=== PATIENT | female | born 1940 | race Caucasian/White ===

== ENCOUNTER 2021-11-29 11:58 | Inpatient (IN) ==
[2021-11-29] MEDS: *HR* OxyCODONE/APAP 5/325 TABLET PO PRN (21:42)
[2021-11-29] MEDS: Pregabalin 50 MG CAPSULE PO SCH (21:42)
[2021-11-30] MEDS: Latanoprost 2.5 ML BOTTLE BOTH EYES SCH ×2 (05:00→20:49)
[2021-11-30 07:26] LABS: Basophils % 0.2 %; Eosinophils # 0.2 K/mcL (0.0-0.6); Eosinophils % 2.5 %; Hematocrit 23.8 % (35.3-44.9); Hemoglobin 7.5 g/dL (11.5-15.4); Immature Granulocytes % 1.3 % (0-4); Lymphocytes # 1.1 K/mcL (0.6-4.6); Lymphocytes % 12.5 %; Mean Corpuscular HGB Conc 31.5 g/dL (31.6-35.5); Mean Corpuscular Hemoglobin 26.9 pg (28.0-33.3); Mean Corpuscular Volume 85.3 fL (83.0-100.0); Mean Platelet Volume 10.4 fL (9.4-12.4); Monocytes # 0.7 K/mcL (0.0-1.3); Monocytes % 7.9 %; Neutrophils # 6.8 K/mcL (1.6-8.9); Platelet Count 351 K/mcL (140-400); Red Blood Count 2.79 M/mcL (3.82-4.97); Red Cell Distribution Width 18.5 % (11.5-14.5); Segmented Neutrophils % 75.6 %
[2021-11-30 08:02] LABS: BUN/Creatinine Ratio 21 (6-26); Blood Urea Nitrogen 16 mg/dL (8-23); Calcium 8.2 mg/dL (8.6-10.3); Carbon Dioxide 30 mEq/L (23-29); Chloride 104 mEq/L (98-107); Glucose 96 mg/dL (70-105); Osmolality,Calculated 293 (280-300); Potassium 2.5 mEq/L (3.5-5.1); Sodium 141 mEq/L (136-145); eGFR For African Americans > 60 (> 60); eGFR For Non-African Americans > 60 (> 60)
[2021-11-30] MEDS: *HR* Heparin 5,000 UNIT/ML VIAL SQ SCH ×2 (08:18→08:21)
[2021-11-30] MEDS: Metoprolol XL (24 HR) Succ 25 MG TAB.ER.24H PO SCH (08:22)
[2021-11-30] MEDS: Vitamin B Complex/Vit C/Vit E 1 EACH TABLET PO SCH (08:22)
[2021-11-30] MEDS: Aspirin Enteric Coated 81 MG Tablet PO SCH (08:22)
[2021-11-30] MEDS: Cholecalciferol (D-3) 1,000 UNIT (25MCG) TABLET PO SCH (08:24)
[2021-11-30] MEDS: Ascorbic Acid 500 MG TABLET PO SCH (08:24)
[2021-11-30] MEDS: lisinopriL 20 MG TABLET PO SCH (08:24)
[2021-11-30] MEDS: Multivit/Ca/Min/Fe/FA 1 TAB TABLET PO SCH (08:24)
[2021-11-30] MEDS: Pregabalin 50 MG CAPSULE PO SCH ×2 (08:24→20:51)
[2021-11-30] MEDS: amLODIPine 5 MG TABLET PO SCH (08:24)
[2021-11-30] MEDS ORDERED: Sennosides/Docusate Sodium TABLET PO PRN (19:03)
[2021-11-30] MEDS: *HR* OxyCODONE/APAP 5/325 TABLET PO PRN (20:49)
[2021-12-01 07:28] LABS: Hematocrit 25.4 % (35.3-44.9); Hemoglobin 7.7 g/dL (11.5-15.4); Mean Corpuscular HGB Conc 30.3 g/dL (31.6-35.5); Mean Corpuscular Hemoglobin 26.5 pg (28.0-33.3); Mean Corpuscular Volume 87.3 fL (83.0-100.0); Mean Platelet Volume 10.8 fL (9.4-12.4); Platelet Count 401 K/mcL (140-400); Red Blood Count 2.91 M/mcL (3.82-4.97); Red Cell Distribution Width 18.9 % (11.5-14.5)
[2021-12-01 08:29] LABS: BUN/Creatinine Ratio 20 (6-26); Blood Urea Nitrogen 18 mg/dL (8-23); Calcium 8.4 mg/dL (8.6-10.3); Carbon Dioxide 30 mEq/L (23-29); Chloride 105 mEq/L (98-107); Glucose 98 mg/dL (70-105); Magnesium 1.8 mg/dL (1.6-2.6); Osmolality,Calculated 296 (280-300); Potassium 3.2 mEq/L (3.5-5.1); Sodium 142 mEq/L (136-145); eGFR For African Americans > 60 (> 60); eGFR For Non-African Americans 60 (> 60)
[2021-12-01] MEDS: Metoprolol XL (24 HR) Succ 25 MG TAB.ER.24H PO SCH (10:53)
[2021-12-01] MEDS: Aspirin Enteric Coated 81 MG Tablet PO SCH (10:54)
[2021-12-01] MEDS: amLODIPine 5 MG TABLET PO SCH (10:54)
[2021-12-01] MEDS: Cholecalciferol (D-3) 1,000 UNIT (25MCG) TABLET PO SCH (10:54)
[2021-12-01] MEDS: lisinopriL 20 MG TABLET PO SCH (10:54)
[2021-12-01] MEDS: Multivit/Ca/Min/Fe/FA 1 TAB TABLET PO SCH (10:55)
[2021-12-01] MEDS: Pregabalin 50 MG CAPSULE PO SCH ×2 (10:55→20:19)
[2021-12-01] MEDS: Ascorbic Acid 500 MG TABLET PO SCH (10:55)
[2021-12-01] MEDS: Vitamin B Complex/Vit C/Vit E 1 EACH TABLET PO SCH (10:55)
[2021-12-01] MEDS: Latanoprost 2.5 ML BOTTLE BOTH EYES SCH (20:20)
[2021-12-02] MEDS: *HR* OxyCODONE/APAP 5/325 TABLET PO PRN ×2 (01:26→23:40)
[2021-12-02 08:39] LABS: Hematocrit 27.3 % (35.3-44.9); Hemoglobin 8.4 g/dL (11.5-15.4); Mean Corpuscular HGB Conc 30.8 g/dL (31.6-35.5); Mean Corpuscular Hemoglobin 26.8 pg (28.0-33.3); Mean Corpuscular Volume 87.2 fL (83.0-100.0); Mean Platelet Volume 9.9 fL (9.4-12.4); Platelet Count 423 K/mcL (140-400); Red Blood Count 3.13 M/mcL (3.82-4.97); Red Cell Distribution Width 19.5 % (11.5-14.5); White Blood Count 10.4 K/mcL (4.3-11.1)
[2021-12-02 09:08] LABS: BUN/Creatinine Ratio 21 (6-26); Blood Urea Nitrogen 17 mg/dL (8-23); Calcium 8.7 mg/dL (8.6-10.3); Carbon Dioxide 30 mEq/L (23-29); Chloride 103 mEq/L (98-107); Glucose 112 mg/dL (70-105); Osmolality,Calculated 292 (280-300); Potassium 3.4 mEq/L (3.5-5.1); Sodium 140 mEq/L (136-145); eGFR For African Americans > 60 (> 60); eGFR For Non-African Americans > 60 (> 60)
[2021-12-02] MEDS: Metoprolol XL (24 HR) Succ 25 MG TAB.ER.24H PO SCH (09:38)
[2021-12-02] MEDS: amLODIPine 5 MG TABLET PO SCH (09:38)
[2021-12-02] MEDS: Pregabalin 50 MG CAPSULE PO SCH ×2 (09:38→20:03)
[2021-12-02] MEDS: Vitamin B Complex/Vit C/Vit E 1 EACH TABLET PO SCH (09:38)
[2021-12-02] MEDS: Cholecalciferol (D-3) 1,000 UNIT (25MCG) TABLET PO SCH (09:38)
[2021-12-02] MEDS: lisinopriL 20 MG TABLET PO SCH (09:38)
[2021-12-02] MEDS: Ascorbic Acid 500 MG TABLET PO SCH (09:38)
[2021-12-02] MEDS: Multivit/Ca/Min/Fe/FA 1 TAB TABLET PO SCH (09:38)
[2021-12-02] MEDS: Aspirin Enteric Coated 81 MG Tablet PO SCH (09:38)
[2021-12-02] MEDS: Latanoprost 2.5 ML BOTTLE BOTH EYES SCH (20:04)
[2021-12-03] MEDS: Metoprolol XL (24 HR) Succ 25 MG TAB.ER.24H PO SCH (08:46)
[2021-12-03] MEDS: Vitamin B Complex/Vit C/Vit E 1 EACH TABLET PO SCH (08:46)
[2021-12-03] MEDS: amLODIPine 5 MG TABLET PO SCH (08:46)
[2021-12-03] MEDS: Multivit/Ca/Min/Fe/FA 1 TAB TABLET PO SCH (08:46)
[2021-12-03] MEDS: Ascorbic Acid 500 MG TABLET PO SCH (08:46)
[2021-12-03] MEDS: lisinopriL 20 MG TABLET PO SCH (08:47)
[2021-12-03] MEDS: Pregabalin 50 MG CAPSULE PO SCH ×2 (08:47→20:28)
[2021-12-03] MEDS: Cholecalciferol (D-3) 1,000 UNIT (25MCG) TABLET PO SCH (08:47)
[2021-12-03] MEDS: Aspirin Enteric Coated 81 MG Tablet PO SCH (08:47)
[2021-12-03] MEDS: *HR* OxyCODONE/APAP 5/325 TABLET PO PRN (20:28)
[2021-12-03] MEDS: Latanoprost 2.5 ML BOTTLE BOTH EYES SCH (20:29)
[2021-12-04 06:15] LABS: Hematocrit 25.6 % (35.3-44.9); Mean Corpuscular HGB Conc 31.3 g/dL (31.6-35.5); Mean Corpuscular Hemoglobin 26.8 pg (28.0-33.3); Mean Corpuscular Volume 85.6 fL (83.0-100.0); Mean Platelet Volume 10.3 fL (9.4-12.4); Platelet Count 382 K/mcL (140-400); Red Blood Count 2.99 M/mcL (3.82-4.97); Red Cell Distribution Width 19.2 % (11.5-14.5); White Blood Count 12.7 K/mcL (4.3-11.1)
[2021-12-04 06:40] LABS: BUN/Creatinine Ratio 14 (6-26); Blood Urea Nitrogen 14 mg/dL (8-23); Calcium 8.7 mg/dL (8.6-10.3); Carbon Dioxide 27 mEq/L (23-29); Chloride 105 mEq/L (98-107); Glucose 89 mg/dL (70-105); Osmolality,Calculated 288 (280-300); Potassium 4.1 mEq/L (3.5-5.1); Sodium 139 mEq/L (136-145); eGFR For African Americans > 60 (> 60); eGFR For Non-African Americans 55 (> 60)
[2021-12-04] MEDS: Ascorbic Acid 500 MG TABLET PO SCH (08:04)
[2021-12-04] MEDS: lisinopriL 20 MG TABLET PO SCH (08:04)
[2021-12-04] MEDS: Metoprolol XL (24 HR) Succ 25 MG TAB.ER.24H PO SCH (08:04)
[2021-12-04] MEDS: Multivit/Ca/Min/Fe/FA 1 TAB TABLET PO SCH (08:04)
[2021-12-04] MEDS: Pregabalin 50 MG CAPSULE PO SCH ×2 (08:04→20:13)
[2021-12-04] MEDS: Aspirin Enteric Coated 81 MG Tablet PO SCH (08:04)
[2021-12-04] MEDS: Cholecalciferol (D-3) 1,000 UNIT (25MCG) TABLET PO SCH (08:05)
[2021-12-04] MEDS: Vitamin B Complex/Vit C/Vit E 1 EACH TABLET PO SCH (08:05)
[2021-12-04] MEDS: amLODIPine 5 MG TABLET PO SCH (08:05)
[2021-12-04] MEDS: *HR* OxyCODONE/APAP 5/325 TABLET PO PRN (13:46)
[2021-12-04] MEDS: Latanoprost 2.5 ML BOTTLE BOTH EYES SCH (20:13)
[2021-12-05] MEDS: *HR* OxyCODONE/APAP 5/325 TABLET PO PRN ×2 (02:04→20:17)
[2021-12-05] MEDS: Cholecalciferol (D-3) 1,000 UNIT (25MCG) TABLET PO SCH (09:22)
[2021-12-05] MEDS: Pregabalin 50 MG CAPSULE PO SCH ×2 (09:23→20:10)
[2021-12-05] MEDS: lisinopriL 20 MG TABLET PO SCH (09:23)
[2021-12-05] MEDS: Aspirin Enteric Coated 81 MG Tablet PO SCH (09:23)
[2021-12-05] MEDS: Metoprolol XL (24 HR) Succ 25 MG TAB.ER.24H PO SCH (09:23)
[2021-12-05] MEDS: amLODIPine 5 MG TABLET PO SCH (09:24)
[2021-12-05] MEDS: Ascorbic Acid 500 MG TABLET PO SCH (09:24)
[2021-12-05] MEDS: Vitamin B Complex/Vit C/Vit E 1 EACH TABLET PO SCH (09:25)
[2021-12-05] MEDS: Multivit/Ca/Min/Fe/FA 1 TAB TABLET PO SCH (09:25)
[2021-12-05] MEDS: Latanoprost 2.5 ML BOTTLE BOTH EYES SCH (20:11)
[2021-12-06 06:14] LABS: Hemoglobin 7.8 g/dL (11.5-15.4); Mean Corpuscular Hemoglobin 26.3 pg (28.0-33.3); Mean Corpuscular Volume 87.5 fL (83.0-100.0); Mean Platelet Volume 10.1 fL (9.4-12.4); Platelet Count 447 K/mcL (140-400); Red Blood Count 2.97 M/mcL (3.82-4.97); Red Cell Distribution Width 19.1 % (11.5-14.5); White Blood Count 7.3 K/mcL (4.3-11.1)
[2021-12-06 06:38] LABS: Potassium 4.2 mEq/L (3.5-5.1)
[2021-12-06] MEDS: Aspirin Enteric Coated 81 MG Tablet PO SCH (08:05)
[2021-12-06] MEDS: Vitamin B Complex/Vit C/Vit E 1 EACH TABLET PO SCH (08:05)
[2021-12-06] MEDS: Pregabalin 50 MG CAPSULE PO SCH ×2 (08:06→19:56)
[2021-12-06] MEDS: lisinopriL 20 MG TABLET PO SCH (08:06)
[2021-12-06] MEDS: Multivit/Ca/Min/Fe/FA 1 TAB TABLET PO SCH (08:06)
[2021-12-06] MEDS: Metoprolol XL (24 HR) Succ 25 MG TAB.ER.24H PO SCH (08:06)
[2021-12-06] MEDS: Ascorbic Acid 500 MG TABLET PO SCH (08:07)
[2021-12-06] MEDS: amLODIPine 5 MG TABLET PO SCH (08:07)
[2021-12-06] MEDS: Cholecalciferol (D-3) 1,000 UNIT (25MCG) TABLET PO SCH (08:07)
[2021-12-06 13:46] LABS: % Iron Saturation 9 % (15-50); Iron 24 mcg/dL (50-170); Transferrin 194 mg/dL (203-362)
[2021-12-06 14:23] LABS: Folate > 22.3 ng/mL (3.0-16.0); Vitamin B12 1391 pg/mL (250-1100)
[2021-12-06] MEDS: *HR* OxyCODONE/APAP 5/325 TABLET PO PRN (19:56)
[2021-12-06] MEDS: Latanoprost 2.5 ML BOTTLE BOTH EYES SCH (19:57)
[2021-12-07] MEDS: Cholecalciferol (D-3) 1,000 UNIT (25MCG) TABLET PO SCH (07:58)
[2021-12-07] MEDS: Multivit/Ca/Min/Fe/FA 1 TAB TABLET PO SCH (07:58)
[2021-12-07] MEDS: lisinopriL 20 MG TABLET PO SCH (07:59)
[2021-12-07] MEDS: amLODIPine 5 MG TABLET PO SCH (08:00)
[2021-12-07] MEDS: Vitamin B Complex/Vit C/Vit E 1 EACH TABLET PO SCH (08:01)
[2021-12-07] MEDS: Pregabalin 50 MG CAPSULE PO SCH ×2 (08:01→21:06)
[2021-12-07] MEDS: Aspirin Enteric Coated 81 MG Tablet PO SCH (08:01)
[2021-12-07] MEDS: Metoprolol XL (24 HR) Succ 25 MG TAB.ER.24H PO SCH (08:02)
[2021-12-07] MEDS: Ascorbic Acid 500 MG TABLET PO SCH (08:02)
[2021-12-07] MEDS: Latanoprost 2.5 ML BOTTLE BOTH EYES SCH (21:06)
[2021-12-07] MEDS: *HR* OxyCODONE/APAP 5/325 TABLET PO PRN (21:09)
[2021-12-08 08:04] LABS: Hematocrit 27.2 % (35.3-44.9); Hemoglobin 8.2 g/dL (11.5-15.4); Mean Corpuscular HGB Conc 30.1 g/dL (31.6-35.5); Mean Corpuscular Hemoglobin 26.5 pg (28.0-33.3); Mean Corpuscular Volume 87.7 fL (83.0-100.0); Mean Platelet Volume 10.2 fL (9.4-12.4); Platelet Count 483 K/mcL (140-400); Red Cell Distribution Width 18.7 % (11.5-14.5); White Blood Count 7.5 K/mcL (4.3-11.1)
[2021-12-08] MEDS: Multivit/Ca/Min/Fe/FA 1 TAB TABLET PO SCH (09:59)
[2021-12-08] MEDS: lisinopriL 20 MG TABLET PO SCH (09:59)
[2021-12-08] MEDS: Aspirin Enteric Coated 81 MG Tablet PO SCH (09:59)
[2021-12-08] MEDS: Cholecalciferol (D-3) 1,000 UNIT (25MCG) TABLET PO SCH (09:59)
[2021-12-08] MEDS: Metoprolol XL (24 HR) Succ 25 MG TAB.ER.24H PO SCH (09:59)
[2021-12-08] MEDS: Vitamin B Complex/Vit C/Vit E 1 EACH TABLET PO SCH (10:00)
[2021-12-08] MEDS: Ascorbic Acid 500 MG TABLET PO SCH (10:00)
[2021-12-08] MEDS: Pregabalin 50 MG CAPSULE PO SCH ×2 (10:00→21:37)
[2021-12-08] MEDS: amLODIPine 5 MG TABLET PO SCH (10:00)
[2021-12-08] MEDS: *HR* OxyCODONE/APAP 5/325 TABLET PO PRN (21:37)
[2021-12-08] MEDS: Latanoprost 2.5 ML BOTTLE BOTH EYES SCH (21:38)
[2021-12-09] MEDS: amLODIPine 5 MG TABLET PO SCH (09:49)
[2021-12-09] MEDS: Multivit/Ca/Min/Fe/FA 1 TAB TABLET PO SCH (09:49)
[2021-12-09] MEDS: *HR* OxyCODONE/APAP 5/325 TABLET PO PRN (09:50)
[2021-12-09] MEDS: Metoprolol XL (24 HR) Succ 25 MG TAB.ER.24H PO SCH (09:50)
[2021-12-09] MEDS: Pregabalin 50 MG CAPSULE PO SCH ×2 (09:50→19:42)
[2021-12-09] MEDS: Ascorbic Acid 500 MG TABLET PO SCH (09:50)
[2021-12-09] MEDS: Vitamin B Complex/Vit C/Vit E 1 EACH TABLET PO SCH (09:50)
[2021-12-09] MEDS: lisinopriL 20 MG TABLET PO SCH (09:50)
[2021-12-09] MEDS: Aspirin Enteric Coated 81 MG Tablet PO SCH (09:50)
[2021-12-09] MEDS: Cholecalciferol (D-3) 1,000 UNIT (25MCG) TABLET PO SCH (10:03)
[2021-12-09] MEDS: Latanoprost 2.5 ML BOTTLE BOTH EYES SCH (19:42)
[2021-12-10] MEDS: *HR* OxyCODONE/APAP 5/325 TABLET PO PRN (08:21)
[2021-12-10] MEDS: Ascorbic Acid 500 MG TABLET PO SCH (08:22)
[2021-12-10] MEDS: Pregabalin 50 MG CAPSULE PO SCH ×2 (08:22→19:49)
[2021-12-10] MEDS: Vitamin B Complex/Vit C/Vit E 1 EACH TABLET PO SCH (08:22)
[2021-12-10] MEDS: Metoprolol XL (24 HR) Succ 25 MG TAB.ER.24H PO SCH (08:22)
[2021-12-10] MEDS: Aspirin Enteric Coated 81 MG Tablet PO SCH (08:22)
[2021-12-10] MEDS: Cholecalciferol (D-3) 1,000 UNIT (25MCG) TABLET PO SCH (08:22)
[2021-12-10] MEDS: amLODIPine 5 MG TABLET PO SCH (08:22)
[2021-12-10] MEDS: lisinopriL 20 MG TABLET PO SCH (08:22)
[2021-12-10] MEDS: Multivit/Ca/Min/Fe/FA 1 TAB TABLET PO SCH (08:22)
[2021-12-10] MEDS ORDERED: Acetaminophen 325 MG TABLET PO PRN (17:34)
[2021-12-10] MEDS: Latanoprost 2.5 ML BOTTLE BOTH EYES SCH (19:49)
[2021-12-11] MEDS: Pregabalin 50 MG CAPSULE PO SCH ×2 (08:17→20:45)
[2021-12-11] MEDS: Multivit/Ca/Min/Fe/FA 1 TAB TABLET PO SCH (08:17)
[2021-12-11] MEDS: Vitamin B Complex/Vit C/Vit E 1 EACH TABLET PO SCH (08:17)
[2021-12-11] MEDS: amLODIPine 5 MG TABLET PO SCH (08:17)
[2021-12-11] MEDS: Aspirin Enteric Coated 81 MG Tablet PO SCH (08:17)
[2021-12-11] MEDS: Metoprolol XL (24 HR) Succ 25 MG TAB.ER.24H PO SCH (08:17)
[2021-12-11] MEDS: Cholecalciferol (D-3) 1,000 UNIT (25MCG) TABLET PO SCH (08:17)
[2021-12-11] MEDS: lisinopriL 20 MG TABLET PO SCH (08:17)
[2021-12-11] MEDS: Ascorbic Acid 500 MG TABLET PO SCH (08:17)
[2021-12-11] MEDS: Latanoprost 2.5 ML BOTTLE BOTH EYES SCH (20:46)
[2021-12-12] MEDS: Cholecalciferol (D-3) 1,000 UNIT (25MCG) TABLET PO SCH (08:25)
[2021-12-12] MEDS: Multivit/Ca/Min/Fe/FA 1 TAB TABLET PO SCH (08:25)
[2021-12-12] MEDS: Vitamin B Complex/Vit C/Vit E 1 EACH TABLET PO SCH (08:25)
[2021-12-12] MEDS: amLODIPine 5 MG TABLET PO SCH (08:25)
[2021-12-12] MEDS: Pregabalin 50 MG CAPSULE PO SCH ×2 (08:25→19:40)
[2021-12-12] MEDS: Aspirin Enteric Coated 81 MG Tablet PO SCH (08:25)
[2021-12-12] MEDS: Metoprolol XL (24 HR) Succ 25 MG TAB.ER.24H PO SCH (08:25)
[2021-12-12] MEDS: lisinopriL 20 MG TABLET PO SCH (08:25)
[2021-12-12] MEDS: Ascorbic Acid 500 MG TABLET PO SCH (08:25)
[2021-12-12 18:29] VITALS: O2SAT 96
[2021-12-12] MEDS: Latanoprost 2.5 ML BOTTLE BOTH EYES SCH (19:41)
[2021-12-12] MEDS: *HR* OxyCODONE/APAP 5/325 TABLET PO PRN (22:42)
[2021-12-13 07:20] VITALS: BP 135/64; PULSE 84; RESP 15; TEMP 97.9
[2021-12-13] MEDS: Cholecalciferol (D-3) 1,000 UNIT (25MCG) TABLET PO SCH (08:34)
[2021-12-13] MEDS: Ascorbic Acid 500 MG TABLET PO SCH (08:34)
[2021-12-13] MEDS: Vitamin B Complex/Vit C/Vit E 1 EACH TABLET PO SCH (08:34)
[2021-12-13] MEDS: lisinopriL 20 MG TABLET PO SCH (08:34)
[2021-12-13] MEDS: Aspirin Enteric Coated 81 MG Tablet PO SCH (08:34)
[2021-12-13] MEDS: amLODIPine 5 MG TABLET PO SCH (08:34)
[2021-12-13] MEDS: Multivit/Ca/Min/Fe/FA 1 TAB TABLET PO SCH (08:34)
[2021-12-13] MEDS: Metoprolol XL (24 HR) Succ 25 MG TAB.ER.24H PO SCH (08:34)
[2021-12-13] MEDS: Pregabalin 50 MG CAPSULE PO SCH (08:34)
== END 2021-12-13 13:40 | disposition home health service (06) | DRG 300 ==
LOC: INPPIK 19:32
PROVIDERS: ADMIT Internal Medicine; ATTEND Internal Medicine